=== PATIENT | female | born 1945 | race Caucasian/White ===

== ENCOUNTER 2017-01-18 07:14 | Day surgery (SDC) | payer MEDICARE, OTHER ==
[~2017-01-18 07:14] MED LIST: Metoclopramide 10 MG/2 ML SDV IV PRN; Sodium Chloride 0.9% 1,000 ML IV SCH; Sodium Chloride 0.9% 10 ML Syringe FLUSH PRN
[2017-01-18] MEDS ORDERED: Propofol 200 MG/20 ML SDV ONE (09:35)
[2017-01-18 12:02] VITALS: BP 124/62
--- NOTE | 2017-01-18 13:36 | OR ---
DATE OF OPERATION: 01/18/2017 PREOPERATIVE DIAGNOSIS: Personal history of colon polyps. POSTOPERATIVE DIAGNOSIS: Personal history of colon polyps. ANESTHESIA: MAC. PROCEDURE: Colonoscopy with biopsy. INDICATIONS FOR PROCEDURE: The patient is a 71-year-old female, who has a personal history of colon polyps. The last colonoscopy was five to six years ago, at which time they did find some polyps. She has had no change in bowel habits since that time. The patient is here today for routine colonoscopy. DESCRIPTION OF PROCEDURE: Informed consent was obtained from the patient. The patient was taken to the operating room and placed on the tablet in the left lateral decubitus position. Monitored anesthesia care was applied. On digital rectal exam, no masses were palpated. Good rectal tone. Colonoscope was then inserted through the anus and directed towards the cecum. Some abdominal pressure was utilized to accomplish that. Cecum was identified by identifying the appendiceal orifice as well as ileocecal valve. The colonoscope was slowly withdrawn. We did find one small sessile polyp at the hepatic flexure, which was removed with hot biopsy forceps. The remainder of the colon showed no AV malformations, polyps, or masses. The patient did have some moderate diverticulosis in the descending and sigmoid colon. The colonoscope was retroflexed in the rectum showing some small internal hemorrhoids, otherwise, it was unremarkable. The colonoscope was then withdrawn. The patient tolerated the procedure well and she was brought to the recovery room in good condition. FINDINGS: Small sessile polyp at the hepatic flexure, removed. RECOMMENDATIONS: We would recommend repeat colonoscopy in five years for personal history of colorectal polyps. BHAVIK/ASHLY /[id number] MITRA
== END 2017-01-18 12:10 | disposition home or self-care (01) ==
LOC: LB.SDS 07:14
PROVIDERS: ATTEND Surgery
DX: Z86.010 Personal history of colon polyps (principal); Z12.11 Encounter for screening for malignant neoplasm of colon; D12.3 Benign neoplasm of transverse colon; K57.30 Diverticulosis of large intestine without perforation or abscess without bleeding; K64.8 Other hemorrhoids; I10 Essential (primary) hypertension; E78.00 Pure hypercholesterolemia, unspecified; Z88.2 Allergy status to sulfonamides; Z88.8 Allergy status to other drugs, medicaments and biological substances; Z91.048 Other nonmedicinal substance allergy status; Z79.82 Long term (current) use of aspirin; Z79.899 Other long term (current) drug therapy
CPT/HCPCS: 45380; 88305; J2704; J7040

== ENCOUNTER 2018-03-08 12:15 | Emergency (ER) | payer OTHER, MEDICARE ==
[2018-03-08 12:56] VITALS: BP 177/67
--- NOTE | 2018-03-08 15:44 | EDM.PDOC ---
ED HPI GENERAL MEDICAL PROBLEM - General Chief Complaint: General Stated Complaint: FALL IN PARKING LOT Time Seen by Provider: 03/08/18 12:50 Source of Information: Reports: Patient History Limitations: Reports: No Limitations - History of Present Illness INITIAL COMMENTS - FREE TEXT/NARRATIVE: This is a 72yo F who tripped on stairs around the hospital grounds and hit her knee and face with some neck pain at this time. Patient denies any loss of consciousness or other concerns but has knee pain and neck pain. Onset: Sudden Location: Reports: Face, Lower Extremity, Left Quality: Reports: Ache Severity: Moderate Improves with: Reports: None Worsens with: Reports: Movement Associated Symptoms: Reports: No Other Symptoms - Related Data Allergies Allergy/AdvReac Type Severity Reaction Status Date / Time tramadol Allergy Intermediate Fainting Verified 03/08/18 12:24 Sulfa (Sulfonamide Allergy Unknown Rash Verified 03/08/18 12:24 Antibiotics) aloe vera Allergy Rash Verified 03/08/18 12:24 meloxicam Allergy Fainting Verified 03/08/18 12:24 meperidine [From Demerol] Allergy Nausea Verified 03/08/18 12:24 Home Meds: Home Meds Acetaminophen [Tylenol] 650 mg PO Q6H 07/10/16 [History] Aspirin [Ecotrin] 81 mg PO DAILY 07/10/16 [History] Atenolol [Tenormin] 50 mg PO DAILY 07/10/16 [History] Doxazosin [Doxazosin Mesylate] 4 mg PO DAILY 07/10/16 [History] Furosemide [Lasix] 40 mg PO DAILY 07/10/16 [History] Losartan [Cozaar] 100 mg PO DAILY 07/10/16 [History] Simvastatin 20 mg PO BEDTIME 07/10/16 [History] amLODIPine [Norvasc] 5 mg PO DAILY 07/10/16 [History] Bilberry Fruit Extract [Bilberry Extract] 30 mg PO DAILY 01/17/17 [History] Cholecalciferol (Vitamin D3) [Vitamin D3] 2,000 unit PO DAILY 01/17/17 [History] Multivits-Min/Iron/FA/Lutein [Centrum Silver Women Tablet] 1 tab PO DAILY [History] [place]-3/DHA/Epa/Fish Oil [Fish Oil 1,360 mg Softgel] 1 cap PO DAILY 01/17/17 [ History] Past Medical History HEENT History: Reports: Cataract, Macular Degeneration Other HEENT History: tonsillectomy, 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 Cardiovascular History: Reports: Heart Murmur, Hypertension Other Cardiovascular History: pt states that she has an extra heart beat heart murmur but doesn't give her any problems Respiratory History: Reports: None, SOB Other Respiratory History: some SOB with exerise Gastrointestinal History: Reports: Colon Polyp Other Gastrointestinal History: approx 5-6 yrs ago polyp Other [employer] IN[employer] History: parity: 1, gravity: 1 Musculoskeletal History: Reports: Arthritis, Osteoarthritis Other Musculoskeletal History: had chronic pain in left hip before surgery Endocrine/Metabolic History: Reports: Osteoporosis Other Endocrine/Metabolic History: arthitis to spine Oncologic (Cancer) History: Reports: Basal Cell Carcinoma Dermatologic History: Reports: Benign Melanoma, Melanoma Other Dermatologic History: three patches removed; two cancerous, one benign - Infectious Disease History Infectious Disease History: Reports: Chicken Pox, Measles, Scarlet Fever - Past Surgical History Head Surgeries/Procedures: Reports: None HEENT Surgical History: Reports: Adenoidectomy, Tonsillectomy Musculoskeletal Surgical History: Reports: Hip Replacement Other Musculoskeletal Surgeries/Procedures:: both hips replaced, rt in 2007, left in 06/2016 Dermatological Surgical History: Reports: Skin Biopsy Social & Family History - Family History Cardiac: Reports: DE Other Cardiac Family History: mother had DE at 49 and at age 59 Endocrine/Metabolic: Reports: Diabetes, Type I Other Endocrine/Metabolic Family History: mother was diabetic since alfonzo 21 Other Dermatologic Family History: sister has elephants disease Oncologic: Reports: Breast, Colon Other Oncologic Family History: father = colon cancer, sister = breast cancer - Caffeine Use Caffeine Use: Reports: Coffee Caffeine Use Comment: 1 cup a morning ED ROS GENERAL - Review of Systems Review Of Systems: ROS reveals no pertinent complaints other than HPI. ED EXAM, GENERAL - Physical Exam Exam: See Below Exam Limited By: No Limitations General Appearance: Alert, WD/WN, No Apparent Distress Eye Exam: Bilateral Eye: EOMI, PERRL Ears: Normal External Exam Nose: Normal Inspection Throat/Mouth: Normal Inspection Head: Atraumatic, Normocephalic Neck: Normal Inspection, Supple, Tender Lateral, Tender Midline Respiratory/Chest: No Respiratory Distress, Lungs Clear, Normal Breath Sounds Cardiovascular: Normal Peripheral Pulses, Regular Rate, Rhythm GI/Abdominal: Normal Bowel Sounds Neurological: Alert, Oriented, CN II-XII Intact Psychiatric: Normal Affect, Normal Mood Skin Exam: Warm, Dry, Intact, Ecchymosis (left knee) Course - Vital Signs Last Recorded V/S: Last Vital Signs Temp 36.8 C 03/08/18 12:15 Pulse 63 03/08/18 12:15 Resp 12 03/08/18 12:15 BP 177/67 H 03/08/18 12:15 Pulse Ox 98 03/08/18 12:15 - Orders/Labs/Meds Orders: Active Orders 24 hr Category Date Time Status C-Spine [Cervical Spine 2V or 3V] [CR] Stat Exams 03/08/18 12:22 Taken Knee 3V Lt [CR] Stat Exams 03/08/18 12:50 Taken Departure - Departure Time of Disposition: 13:00 Disposition: Home, Self-Care 01 Condition: Good Clinical Impression: Fall (on) (from) unspecified stairs and steps, initial encounter Degenerative joint disease Qualifiers: Osteoarthritis location: spine Spinal region: cervical Spinal osteoarthritis complication: unspecified spinal osteoarthritis Qualified Code(s): M47.812 - Spondylosis without myelopathy or radiculopathy, cervical region Osteoarthritis of left knee Qualifiers: Osteoarthritis type: primary Qualified Code(s): M17.12 - Unilateral primary osteoarthritis, left knee - Discharge Information Instructions: RICE for Routine Care of Injuries, [id number], Fall Prevention in the Home, [id number], Cervical Sprain, [id number] Referrals: Haider Gaytan MD [Primary Care Provider] - Forms: ED Department Discharge Additional Instructions: Rest for the next couple of days after fall. May take Tylenol 500mg to 100 mg every 6 hours for pain. May take Ibproufen 220 mg every 8 hours for pain. Use intermittent ice and heat to area. Alternate heat and ice every 2 to 3 hours for 15 to 20 min at a time. Follow up with Dr. Gaytan in clinic if needed. - Problem List & Annotations (1) Degenerative joint disease SNOMED Code(s): 216743540 Code(s): M19.90 - UNSPECIFIED OSTEOARTHRITIS, UNSPECIFIED SITE Status: Acute Qualifiers: Osteoarthritis location: spine Spinal region: cervical Spinal osteoarthritis complication: unspecified spinal osteoarthritis Qualified Code( s): M47.812 - Spondylosis without myelopathy or radiculopathy, cervical region (2) Fall (on) (from) unspecified stairs and steps, initial encounter SNOMED Code(s): 690731131 Code(s): W10.9XXA - FALL (ON) (FROM) UNSPECIFIED STAIRS AND STEPS, INIT ENCNTR Status: Acute (3) Osteoarthritis of left knee SNOMED Code(s): 862626987596019 Code(s): M17.12 - UNILATERAL PRIMARY OSTEOARTHRITIS, LEFT KNEE Status: Acute Qualifiers: Osteoarthritis type: primary Qualified Code(s): M17.12 - Unilateral primary osteoarthritis, left knee - Problem List Review Problem List Initiated/Reviewed/Updated: Yes - My Orders Last 24 Hours: My Active Orders 03/08/18 12:22 C-Spine [Cervical Spine 2V or 3V] [CR] Stat 03/08/18 12:50 Knee 3V Lt [CR] Stat - Assessment/Plan Last 24 Hours: My Active Orders 03/08/18 12:22 C-Spine [Cervical Spine 2V or 3V] [CR] Stat 03/08/18 12:50 Knee 3V Lt [CR] Stat Plan: Counseled on f/u in clinic and close monitoring. Discussed supportive and conservative care and management. F/u as needed in ER or clinic.
--- NOTE | 2018-03-08 17:31 | CR ---
DATE OF SERVICE: 03/08/18 CLINICAL DATA: fall CERVICAL SPINE: No priors. There is diffuse osteopenia. No acute fracture or dislocation. There is fusion of C2 and C3. There is degenerative disc disease at multiple levels with marked disc space narrowing at the C3-4, C5-6, and C6-7 levels. There is facet joint hypertrophy throughout the cervical spine. The soft tissues are unremarkable. There is calcification noted on the lateral view of the skull which is most likely choroid plexus calcification. [id number] [facility]
--- NOTE | 2018-03-08 17:40 | CR ---
DATE OF SERVICE: 03/08/18 CLINICAL DATA: fall LEFT KNEE: There are tricompartment osteoarthritic changes of the knee joint with mild narrowing of the medial compartment joint space. There is a small joint effusion. No acute abnormalities. [id number] [facility]
== END 2018-03-08 13:35 | disposition home or self-care (01) ==
LOC: LB.ED 12:15
DX: M47.812 Spondylosis without myelopathy or radiculopathy, cervical region (principal); M17.12 Unilateral primary osteoarthritis, left knee; W10.9XXA Fall (on) (from) unspecified stairs and steps, initial encounter; Z79.899 Other long term (current) drug therapy; Z79.82 Long term (current) use of aspirin; Z88.5 Allergy status to narcotic agent; Z88.2 Allergy status to sulfonamides
CPT/HCPCS: 72040; 73562-LT; 99283

== ENCOUNTER 2021-03-30 18:35 | Emergency (ER) | payer MEDICARE, BC ==
[2021-03-30] MEDS ORDERED: LORazepam 1 MG Tab ONE (19:00)
--- NOTE | 2021-03-30 19:18 | EDM.PDOC ---
ED HPI GENERAL MEDICAL PROBLEM - General Chief Complaint: General Stated Complaint: PANIC ATTACK Time Seen by Provider: 03/30/21 18:45 - History of Present Illness INITIAL COMMENTS - FREE TEXT/NARRATIVE: Pt comes to the ER with C/O anxiety. She was upset today about something, and when she checked her BP and pulse they were both high. This made her anxious and her vitals got even worse. She thought she should come in for evaluation. She has no chest pain, SOB, nausea. - Related Data Allergies Allergy/AdvReac Type Severity Reaction Status Date / Time tramadol Allergy Intermediate Fainting Verified 03/08/18 12:24 Sulfa (Sulfonamide Allergy Unknown Rash Verified 03/08/18 12:24 Antibiotics) aloe vera Allergy Rash Verified 03/08/18 12:24 meloxicam Allergy Fainting Verified 03/08/18 12:24 meperidine [From Demerol] Allergy Nausea Verified 03/08/18 12:24 Home Meds: Home Meds Acetaminophen [Tylenol] 650 mg PO Q6H 07/10/16 [History] Aspirin [Ecotrin] 81 mg PO DAILY 07/10/16 [History] Doxazosin [Doxazosin Mesylate] 4 mg PO DAILY 07/10/16 [History] Furosemide [Lasix] 40 mg PO DAILY 07/10/16 [History] Losartan [Cozaar] 100 mg PO DAILY 07/10/16 [History] Simvastatin 20 mg PO BEDTIME 07/10/16 [History] amLODIPine [Norvasc] 5 mg PO DAILY 07/10/16 [History] atenoloL [Tenormin] 50 mg PO DAILY 07/10/16 [History] Bilberry Fruit Extract [Bilberry Extract] 30 mg PO DAILY 01/17/17 [History] Cholecalciferol (Vitamin D3) [Vitamin D3] 2,000 unit PO DAILY 01/17/17 [History] Multivit-Min/Iron/Folic/Lutein [Centrum Silver Women Tablet] 1 tab PO DAILY 01/17/17 [History] [place]-3/DHA/Epa/Fish Oil [Fish Oil 1,360 mg Softgel] 1 cap PO DAILY 01/17/17 [History] Past Medical History HEENT History: Reports: Cataract, Macular Degeneration Other HEENT History: tonsillectomy, 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 Cardiovascular History: Reports: Heart Murmur, Hypertension Other Cardiovascular History: pt states that she has an extra heart beat heart murmur but doesn't give her any problems Respiratory History: Reports: None, SOB Other Respiratory History: some SOB with exerise Gastrointestinal History: Reports: Colon Polyp Other Gastrointestinal History: approx 5-6 yrs ago polyp 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, gravity: 1 Musculoskeletal History: Reports: Arthritis, Osteoarthritis Other Musculoskeletal History: had chronic pain in left hip before surgery Endocrine/Metabolic History: Reports: Osteoporosis Other Endocrine/Metabolic History: arthitis to spine Oncologic (Cancer) History: Reports: Basal Cell Carcinoma Dermatologic History: Reports: Benign Melanoma, Melanoma Other Dermatologic History: three patches removed; two cancerous, one benign - Infectious Disease History Infectious Disease History: Reports: Chicken Pox, Measles, Scarlet Fever - Past Surgical History Head Surgeries/Procedures: Reports: None HEENT Surgical History: Reports: Adenoidectomy, Tonsillectomy Musculoskeletal Surgical History: Reports: Hip Replacement Other Musculoskeletal Surgeries/Procedures:: both hips replaced, rt in 2007, left in 06/2016 Dermatological Surgical History: Reports: Skin Biopsy Social & Family History - Family History Cardiac: Reports: SD Other Cardiac Family History: mother had SD at 49 and at age 59 Endocrine/Metabolic: Reports: Diabetes, Type I Other Endocrine/Metabolic Family History: mother was diabetic since Other Dermatologic Family History: sister has elephants disease Oncologic: Reports: Breast, Colon Other Oncologic Family History: father = colon cancer, sister = breast cancer - Caffeine Use Caffeine Use: Reports: Coffee Caffeine Use Comment: 1 cup a morning ED ROS GENERAL - Review of Systems Review Of Systems: Comprehensive ROS is negative, except as noted in HPI. Cardiovascular: Reports: Blood Pressure Problem Psychiatric: Reports: Anxiety ED EXAM, GENERAL - Physical Exam Exam: See Below General Appearance: Other (She is smiley and laughing, joking about her anxiety.) Cardiovascular: Other (pulse is currentlr just over 100 and even.) Course - Re-Assessments/Exams Free Text/Narrative Re-Assessment/Exam: 03/30/21 19:15 I discussed anxiety with her and how it effecter her today. She is calming down more as we are with her. She would like to take something for anxiety as needed. We will send her home with Xanax TO TAKE PRN. She should re check her BP and pulse when she is not upset. Follow up in the clinic or here as needed. Departure - Departure Time of Disposition: 19:25 Disposition: Home, Self-Care 01 Condition: Good Clinical Impression: Anxiety - Discharge Information *PRESCRIPTION DRUG MONITORING PROGRAM REVIEWED*: No *COPY OF PRESCRIPTION DRUG MONITORING REPORT IN PATIENT ETTA: No Additional Instructions: Use the Anxiety med as needed. Re check BP and pulse when not upset. Re check in the clinic or here as needed within the next few days.
[2021-03-31 00:13] VITALS: BP 158/82; PULSE 115
== END 2021-03-30 19:37 | disposition home or self-care (01) ==
LOC: LB.ED 18:35
DX: F41.9 Anxiety disorder, unspecified (principal); I10 Essential (primary) hypertension; Z79.899 Other long term (current) drug therapy; Z88.5 Allergy status to narcotic agent; Z88.2 Allergy status to sulfonamides; Z91.048 Other nonmedicinal substance allergy status; Z88.8 Allergy status to other drugs, medicaments and biological substances; Z79.82 Long term (current) use of aspirin
CPT/HCPCS: 99283; A9270-GY

== ENCOUNTER 2022-11-16 07:53 | Day surgery (SDC) | payer MEDICARE, BC ==
[~2022-11-16 07:53] MED LIST changes: +Acetaminophen/HYDROcodone 325-5 MG Tab PO PRN; +Lactated Ringers 1,000 ML IV SCH; -Metoclopramide 10 MG/2 ML SDV IV PRN; +Ondansetron 4 MG/2 ML SDV IVPUSH PRN; -Sodium Chloride 0.9% 1,000 ML IV SCH; -Sodium Chloride 0.9% 10 ML Syringe FLUSH PRN
[2022-11-16] MEDS ORDERED: ceFAZolin 2 GM in Sodium Chloride 0.9% 100 ML IV ONE (08:00)
[2022-11-16] MEDS ORDERED: Rocuronium 50 MG/5 ML Vial ONE (11:00)
[2022-11-16] MEDS ORDERED: Propofol 200 MG/20 ML SDV ONE (11:00)
[2022-11-16] MEDS ORDERED: ePHEDrine 50 MG/ML SDV ONE (11:00)
[2022-11-16] MEDS ORDERED: Phenylephrine 1% 10 MG/ML SDV ONE (11:00)
[2022-11-16] MEDS ORDERED: Labetalol 100 MG/20 ML MDV ONE (11:00)
[2022-11-16] MEDS ORDERED: Glycopyrrolate 0.2 MG/ML 2 ML SDV ONE (11:00)
[2022-11-16 11:34] VITALS: BP 138/69
[2022-11-16] MEDS: Morphine 2 MG/ML SYRINGE IVPUSH PRN ×2 (11:39→12:59)
[2022-11-16 11:44] VITALS: PULSE 62
== END 2022-11-16 14:15 | disposition home or self-care (01) ==
LOC: LB.SDS 07:53
PROVIDERS: ATTEND Surgery
DX: K43.2 Incisional hernia without obstruction or gangrene (principal); M62.08 Separation of muscle (nontraumatic), other site; M19.90 Unspecified osteoarthritis, unspecified site; I10 Essential (primary) hypertension; E78.5 Hyperlipidemia, unspecified; Z98.890 Other specified postprocedural states; Z90.49 Acquired absence of other specified parts of digestive tract; Z79.899 Other long term (current) drug therapy; Z88.2 Allergy status to sulfonamides; Z88.5 Allergy status to narcotic agent; Z88.8 Allergy status to other drugs, medicaments and biological substances
CPT/HCPCS: A9270-GY; J0690; J2270; J2370; J2704; J3490; J7120

== ENCOUNTER 2023-01-07 18:07 | Emergency (ER) | payer MEDICARE, BC ==
[2023-01-07] MEDS ORDERED: hydrOXYzine HCl 25 MG Tab PO ONE (18:47)
[2023-01-07] MEDS ORDERED: Metoprolol Tartrate 5 MG/5 ML SDV IVPUSH ONE ×2 (19:07→19:38)
[2023-01-07] MEDS ORDERED: Metoprolol Tartrate 5 MG/5 ML SDV ONE (19:13)
[2023-01-07 19:31] LABS: BASOPHILS ABSOLUTE AUTO 0.05 K/uL (0.02-0.10); BASOPHILS PERCENT AUTO 0.8 % (0.0-0.5); EOSINOPHILS ABSOLUTE AUTO 0.16 K/uL (0.04-0.40); EOSINOPHILS PERCENT AUTO 2.6 % (1.0-5.0); HEMATOCRIT 39.5 % (37.0-47.0); HEMOGLOBIN 12.8 g/dL (11.5-16.5); LYMPHOCYTES ABSOLUTE AUTO 1.49 K/uL (1.50-4.00); LYMPHOCYTES PERCENT AUTO 24.3 % (20.0-40.0); MEAN CORPUSCULAR HEMOGLOBIN 29.8 pg (27.0-32.0); MEAN CORPUSCULAR HGB CONC 32.4 g/dL (31.0-35.0); MEAN CORPUSCULAR VOLUME 92 fL (76-96); MONOCYTES ABSOLUTE AUTO 0.57 K/uL (0.20-0.80); MONOCYTES PERCENT AUTO 9.3 % (3.0-10.0); NEUTROPHILS ABSOLUTE AUTO 3.86 K/uL (2.00-7.50); PLATELET COUNT,PLT 207 K/uL (150-500); RED BLOOD CELL COUNT 4.29 M/uL (3.80-5.80); RED CELL DISTRIBUTION WIDTH 13.5 % (11.0-16.0); WHITE BLOOD CELL COUNT,WBC 6.1 K/uL (4.0-11.0)
[2023-01-07] MEDS ORDERED: Sodium Chloride 0.9% 10 ML Syringe FLUSH PRN (19:38)
[2023-01-07 19:52] LABS: ALBUMIN 3.8 g/dL (3.4-5.0); ANION GAP 12.3 mmol/L (5.0-15.0); BILIRUBIN TOTAL 0.4 mg/dL (0.0-1.0); BUN/CREATININE RATIO 19.8 (6-25); CALCIUM 9.9 mg/dL (8.5-10.1); CARBON DIOXIDE,CO2 28.8 mmol/L (21.0-32.0); CREATININE 1.16 mg/dL (0.55-1.02); EST CRCL DRUG DOSING (CG) 34.51 mL/min; MAGNESIUM 2.2 mg/dL (1.8-2.4); POTASSIUM,K 4.1 mmol/L (3.5-5.1); PROTEIN TOTAL,TP 7.6 g/dL (6.4-8.2); TROPONIN I HIGH SENSITIVITY 6.7 pg/ml (<=60.4)
[2023-01-07 23:44] VITALS: BP 132/66; PULSE 101
== END 2023-01-07 20:30 | disposition home or self-care (01) ==
LOC: LB.ED 18:07
DX: F41.9 Anxiety disorder, unspecified (principal); I48.91 Unspecified atrial fibrillation; I10 Essential (primary) hypertension; M19.90 Unspecified osteoarthritis, unspecified site; Z79.82 Long term (current) use of aspirin; Z79.899 Other long term (current) drug therapy; Z88.2 Allergy status to sulfonamides; Z88.8 Allergy status to other drugs, medicaments and biological substances; Z88.5 Allergy status to narcotic agent; Z88.6 Allergy status to analgesic agent
CPT/HCPCS: 36415; 80053; 83735; 84484; 85025; 93005; 93010; 96374; 99283; 99283-25; A9270-GY; J3490

== ENCOUNTER 2025-02-19 07:51 | Day surgery (SDC) | payer MEDICARE, BC ==
[2025-02-19] MEDS: Lactated Ringers 1,000 ML IV SCH (08:50)
[2025-02-19] MEDS ORDERED: Midazolam 1 MG/ML 2 ML SDV ONE (10:00)
[2025-02-19 10:58] VITALS: BP 144/82; PULSE 56
== END 2025-02-19 11:47 | disposition home or self-care (01) ==
LOC: LB.SDS 07:51
PROVIDERS: ATTEND Surgery
DX: L92.9 Granulomatous disorder of the skin and subcutaneous tissue, unspecified (principal); L02.811 Cutaneous abscess of head [any part, except face]; L98.8 Other specified disorders of the skin and subcutaneous tissue; Z88.5 Allergy status to narcotic agent; Z88.8 Allergy status to other drugs, medicaments and biological substances; Z88.2 Allergy status to sulfonamides; Z79.82 Long term (current) use of aspirin; Z79.899 Other long term (current) drug therapy
CPT/HCPCS: 11421; 88307; 88342; J0690; J2250; J7120